=== PATIENT | male | born 1970 | race Caucasian/White ===

== ENCOUNTER 2018-06-21 14:11 | Inpatient (IN) | payer OTHER ==
[2018-06-21 15:57] VITALS: BMI 31.4
--- NOTE | 2018-06-21 19:31 | HP ---
"CIWA Score Nausea/Vomitin-No Nausea/No Vomiting Muscle Tremors: 4-Moderate,w/Arms Extend Anxiety: 2 Agitation: 3 Paroxysmal Sweats: 3 (Increased facial moisture) Orientation: 0-Oriented Tacttile Disturbances: 0-None Auditory Disturbances: 0-None Visual Disturbances: 0-None Headache: 3-Moderate CIWA-Ar Total Score: 15 - Admission Criteria [facility]ASAS Guidelines: Admission for Medically Managed Detox: Requires at least one of the followin. CIWA greater than 12 2. Seizures within the past 24 hours 3. Delirium tremens within the past 24 hours 4. Hallucinations within the past 24 hours 5. Acute intervention needed for co occurring medical disorder 6. Acute intervention needed for co occurring psychiatric disorder 7. Severe withdrawal that cannot be handled at a lower level of care (continued vomiting, continued diarrhea, abnormal vital signs) requiring intravenous medication and/or fluids 8. Patient presents the following: CIWA greater than 12 Admission Criteria Met: Admission criteria met Admission ROS S - [facility] Chief Complaint: Here for alcohol withdrawal. Allergies/Adverse Reactions: Allergies Allergy/AdvReac Type Severity Reaction Status Date / Time No Known Allergies Allergy Verified 06/21/18 19:01 History of Present Illness: Patient w/ a history of alcohol and crack/cocaine use disorder. States here for detox. Alcohol use began at age 15. Crack/cocaine use began at age 22. Nicotine use began at age 15. Opiate use began at age 27 and last use 1 year ago. Was on Suboxone for a short time. Hx blackouts unrelated to drug use. One overdose years ago. Denies seizures. Longest length of sobriety 1-2 months. Hx: HTN on meds. Hx heart burn. Not currently under the care of a mental health provider. Hx: Depression - denies thoughts of harming self or others. Search Terms: Gualberto Heredia, 1970 Search Date: 06/21/2018 07:30:41 PM The Drug Utilization Report below displays all of the controlled substance prescriptions, if any, that your patient has filled in the last twelve months. The information displayed on this report is compiled from pharmacy submissions to the Department, and accurately reflects the information as submitted by the pharmacies. This report was requested by: Laurence Phillips | Reference #: [id number] Others' Prescriptions Patient Name: Gualberto Heredia Date: 1970 Address: [address] [place] [id number] Sex: Male Rx Written Rx Dispensed Drug Quantity Days Supply Prescriber Name 12/29/2017 12/29/2017 suboxone 8 mg-2 mg sl film 7 7 Pradeep Corona Patient Name: Gualberto Heredia Date: 1970 Address: [address] [place] [address] [place] [address] Sex: Male Rx Written Rx Dispensed Drug Quantity Days Supply Prescriber Name 07/17/2017 07/17/2017 suboxone 8 mg-2 mg sl film 7 7 Trevon Smith MD Exam Limitations: No Limitations - Ebola screening Have you traveled outside of the country in the last 21 days: No Have you had contact with anyone from an Ebola affected area: No Have you been sick,other than usual withdrawal symptoms: No Do you have a fever: No - Review of Systems Constitutional: Diaphoresis, Changes in sleep (Difficulty falling asleep (Used to take Trazodone)) EENT: reports: Blurred Vision, Nose Congestion, Dental Problems (When eats sweets. Chews and swallows okay.) Respiratory: reports: No Symptoms reported Cardiac: reports: No Symptoms Reported GI: reports: Diarrhea (very soft brownsih), Indigestion : reports: No Symptoms Reported Musculoskeletal: reports: No Symptoms Reported Integumentary: reports: No Symptoms Reported Neuro: reports: Headache Endocrine: reports: Increased Thirst Hematology: reports: No Symptoms Reported Psychiatric: reports: Judgement Intact, Orientated x3, Agitated, Anxious, Depressed (Denies thoughts of harming self or others.) Patient History - Patient Medical History Hx Asthma: No Hx Cardiac Disorders: No Hx Hypertension: Yes Hx Seizures: No Hx Diabetes: No Hx Gastrointestinal Disorders: No Hx Sexually Transmitted Disorders: No Hx Renal Disease (ESRD): No Hx Human Immunodeficiency Virus (HIV): No (No recent exam. ) Hx Depression: Yes - Patient Surgical History Past Surgical History: No - PPD History Previous Implant?: No Documented Results: Negative w/o proof Implanted On Prior [facility] Admission?: No PPD to be Administered?: Yes - Smoking Cessation Smoking history: Current every day smoker Have you smoked in the past 12 months: Yes Aproximately how many cigarettes per day: 5 Hx Chewing Tobacco Use: No Initiated information on smoking cessation: Yes 'Breaking Loose' booklet given: 06/21/18 - Substance & Tx. History Hx Alcohol Use: Yes Hx Substance Use: Yes Substance Use Type: Alcohol, Cocaine, Heroin Hx Substance Use Treatment: Yes (detox -years ago; past use Suboxone) - Substances Abused Alcohol Route: Oral Frequency: Daily Amount used: 03/05OZ BEERS Age of first use: 15 Date of Last Use: 06/21/18 Cocaine Route: Smoking Frequency: Daily Amount used: $300 Age of first use: 22 Date of Last Use: 06/18/18 Admission Physical Exam [facility] - Vital Signs Vital Signs: Vital Signs - 24 hr 06/21/18 15:55 Temperature 97.5 F L Pulse Rate 89 Respiratory 18 Rate Blood Pressure 129/84 - Physical General Appearance: Yes: Nourished, Appropriately Dressed, Mild Distress, Tremorous, Irritable, Sweating, Anxious HEENTM: Yes: EOMI, Hearing grossly Normal, Normocephalic, Normal Voice, KRISTIE, Pharynx Normal, Other (Perforated nasal septum) Respiratory: Yes: Lungs Clear, Normal Breath Sounds, No Respiratory Distress Neck: Yes: No masses,lesions,Nodules, Supple Breast: Yes: Breast Exam Deferred Cardiology: Yes: Regular Rhythm, Regular Rate, S1, S2 Abdominal: Yes: Non Tender, Soft, Increased Bowel Sounds, Protuberent ( Increased abdominal adiposity) Genitourinary: Yes: Within Normal Limits Back: Yes: Normal Inspection Musculoskeletal: Yes: full range of Motion, Gait Steady Extremities: Yes: Normal Capillary Refill, Normal Range of Motion, Tremors ( Tremors at rest which increased w/ arm elevatin) Neurological: Yes: vegetable i farmworker II-XII NML intact, Fully Oriented, Alert, Motor Strength 5/5, Normal Mood/Affect Integumentary: Yes: Normal Color, Dry, Warm Lymphatic: Yes: Within Normal Limits - Diagnostic (1) Alcohol dependence with uncomplicated withdrawal Current Visit: Yes Status: Acute (2) Nicotine dependence, uncomplicated Current Visit: Yes Status: Acute (3) Cocaine dependence, uncomplicated Current Visit: Yes Status: Acute (4) Essential (primary) hypertension Current Visit: Yes Status: Acute (5) Perforated nasal septum Current Visit: Yes Status: Acute Cleared for Admission [facility] - Detox or Rehab Detox Regimen/Protocol: Librium [facility] Breath Alcohol Content Breath Alcohol Content: 0 Urine Drug Screen - Results Drug Screen Negative: No Urine Drug Screen Results: SAMY-Cocaine"
[2018-06-21] MEDS ORDERED: MENTHOL/PHENOL 1 EACH UD MM PRN (20:05)
[2018-06-21] MEDS ORDERED: MAGNESIUM CITRATE 300 ML BOTTLE PO PRN (20:05)
[2018-06-21] MEDS ORDERED: NICOTINE POLACRILEX 2 MG GUM BC PRN (20:05)
[2018-06-21] MEDS ORDERED: LOPERAMIDE HCL 2 MG CAPSULE PO PRN (20:05)
[2018-06-21] MEDS ORDERED: chlordiazePOXIDE HCL 25 MG CAPSULE PO ONE (20:05)
[2018-06-21] MEDS ORDERED: MAG HYDROX/AL HYDROX/SIMETH 30 ML UNIT-DOSE CUP PO PRN (20:05)
[2018-06-21] MEDS ORDERED: ACETAMINOPHEN 325 MG TABLET (FP) PO PRN (20:05)
[2018-06-21] MEDS ORDERED: IBUPROFEN 400 MG TABLET (FP) PO PRN (20:05)
[2018-06-21] MEDS ORDERED: chlordiazePOXIDE HCL 25 MG CAPSULE PO PRN (20:05)
[2018-06-21] MEDS ORDERED: P-EPHED 60MG/TRIPROLIDI 2.5MG TABLET PO PRN (20:05)
[2018-06-21] MEDS ORDERED: MAGNESIUM HYDROX 2400MG/30ML ORAL SUSPENSION 30 ML CUP PO PRN (20:05)
[2018-06-21] MEDS: THIAMINE HCL 100 MG TABLET (FP) PO SCH (21:53)
[2018-06-21] MEDS ORDERED: MELATONIN 5 MG TABLETS PO PRN (22:00)
[2018-06-21] MEDS: chlordiazePOXIDE HCL 25 MG CAPSULE PO SCH (22:02)
[2018-06-22] MEDS: chlordiazePOXIDE HCL 25 MG CAPSULE PO SCH ×4 (05:13→22:54)
--- NOTE | 2018-06-22 09:53 | PN ---
S CIWA - CIWA Score Nausea/Vomitin-Mild Nausea/No Vomiting Muscle Tremors: 4-Moderate,w/Arms Extend Anxiety: 4-Mod. Anxious/Guarded Agitation: 4-Moderately Restless Paroxysmal Sweats: 3 Orientation: 0-Oriented Tacttile Disturbances: 0-None Auditory Disturbances: 0-None Visual Disturbances: 0-None Headache: 0-None Present CIWA-Ar Total Score: 16 [facility] Progress Note (SOAP) Subjective: sweats shakes nausea body aches Objective: 06/22/18 09:52 Vital Signs Temperature 97.9 F 06/22/18 09:11 Pulse Rate 108 H 06/22/18 09:11 Respiratory Rate 18 06/22/18 09:11 Blood Pressure 128/76 06/22/18 09:11 O2 Sat by Pulse Oximetry (%) labs pending aaox3 ambulating no acute distress Assessment: 06/22/18 09:52 withdrawal sx Plan: continue detox increase fluids labs pending
[2018-06-22] MEDS ORDERED: PRAZOSIN HCL 2 MG CAPSULE PO SCH (10:00)
[2018-06-22] MEDS: PRENATAL VITAMINS W/ FOLIC ACID TABLET (FP) PO SCH (10:31)
[2018-06-22] MEDS: NICOTINE 7 MG/24 HOURS TOPICAL PATCH TD SCH (10:32)
[2018-06-22 10:52] LABS: HEMATOCRIT 42.4 % (35.4-49); HEMOGLOBIN 14.5 GM/dL (11.7-16.9); MCH 30.6 pg (25.7-33.7); MCHC 34.1 g/dl (32.0-35.9); MEAN CELL VOLUME 89.7 fl (80-96); MEAN PLT VOLUME 8.2 fl (7.5-11.1); PLATELET COUNT 380 K/MM3 (134-434); RBC 4.73 M/mm3 (4.00-5.60); RDW 13.8 % (11.9-15.9); WHITE BLOOD COUNT 15.8 K/mm3 (4.0-10.0)
[2018-06-22 11:09] LABS: ALBUMIN 3.8 g/dl (3.4-5.0); ALK PHOS 91 U/L (45-117); ANION GAP 9 MMOL/L (8-16); BILIRUBIN,TOTAL 0.2 mg/dL (0.2-1); BLOOD UREA NITROGEN 12 mg/dL (7-18); CALCIUM 9.3 mg/dL (8.5-10.1); CHLORIDE 106 mmol/L (98-107); CO2 24 mmol/L (21-32); CREATININE 0.8 mg/dL (0.55-1.3); GLUCOSE,RANDOM 90 mg/dL (74-106); POTASSIUM 4.1 mmol/L (3.5-5.1); SGOT/AST 19 U/L (15-37); SGPT/ALT 24 U/L (13-61); SODIUM 139 mmol/L (136-145); TOT PROT 7.6 g/dl (6.4-8.2)
[2018-06-22] MEDS: PRAZOSIN HCL 1 MG CAPSULE PO SCH (11:10)
[2018-06-22 11:24] LABS: URINE APPEARANCE TURBID; URINE BILIRUBIN NEGATIVE (<2.0 mg/dL); URINE COLOR YELLOW; URINE GLUCOSE (UA) NEGATIVE (NEGATIVE); URINE KETONE NEGATIVE (NEGATIVE); URINE LEUK ESTERASE NEGATIVE (NEGATIVE); URINE NITRITE NEGATIVE (NEGATIVE); URINE PROTEIN NEGATIVE (NEGATIVE); URINE UROBILINOGEN NEGATIVE mg/dL (0.2-1.0)
--- NOTE | 2018-06-22 13:37 | CONSULT ---
[facility] Psychiatric Consult - Data Date of interview: 06/22/18 Admission source: [facility] Identifying data: First admission to [facility] for this 48 y/o male undergoing detoxification (cocaine,alcohol,opioid). Interviewed at [address] [place] [address]. Patient is single, a father of three, homeless, unemployed and supported on food stamps. Substance Abuse History: Discussed with patient in this interview. Details in current [facility] report as follows : Smoking history: Current every day smoker. Have you smoked in the past 12 months: Yes. Aproximately how many cigarettes per day: 5. Hx Chewing Tobacco Use: No. Initiated information on smoking cessation: Yes. 'Breaking Loose' booklet given: 06/21/18. - Substance & Tx. History. Hx Alcohol Use: Yes. Hx Substance Use: Yes. Substance Use Type: Alcohol, Cocaine, Heroin. Hx Substance Use Treatment: Yes (detox -years ago; past use Suboxone). - Substances Abused. Alcohol. Route: Oral. Frequency : Daily. Amount used: 10/12OZ BEERS. Age of first use: 15. Date of Last Use: 06/21/18. Cocaine. Route: Smoking. Frequency: Daily. Amount used: $300. Age of first use: 22. Date of Last Use: 06/18/18 Medical History: Hypertension. Psychiatric History: No reported history of psychiatric hospitalizations. Patient endorses the diagnosis of " depression and bipolar disorder ". Mr Heredia sees a psychiatrist for medication management, on a monthly basis, at the [facility] in the [place]. Medications consist of olanzapine 10 mg/day + prazosin 2 mg/day + fluoxetine 20 mg/day.Patient insists on resuming these medications during this detoxification process. " I take my medications every day. I don't want to miss my doses ". Denies history of suicide attempts. Physical/Sexual Abuse/Trauma History: Patient denies. Additional Comment: Urine Drug Screen Results: SAMY-Cocaine. Noted. Mental Status Exam - Mental Status Exam Alert and Oriented to: Time, Place, Person Cognitive Function: Good Patient Appearance: Well Groomed Mood: Apprehensive, Hopeful Affect: Appropriate, Normal Range Patient Behavior: Appropriate, Cooperative Speech Pattern: Clear, Appropriate Voice Loudness: Normal Thought Process: Intact, Goal Oriented Thought Disorder: Not Present Hallucinations: Denies Suicidal Ideation: Denies Homicidal Ideation: Denies Insight/Judgement: Fair Sleep: Well Appetite: Good Muscle strength/Tone: Normal Gait/Station: Normal Psychiatric Findings - Problem List ([place] 1, 2,3) (1) Alcohol dependence with uncomplicated withdrawal Current Visit: Yes Status: Acute (2) Cocaine dependence, uncomplicated Current Visit: Yes Status: Acute (3) Nicotine dependence, uncomplicated Current Visit: Yes Status: Acute (4) Substance induced mood disorder Current Visit: Yes Status: Chronic (5) History of major depression Current Visit: Yes Status: Chronic - Initial Treatment Plan Initial Treatment Plan: Psychoeducation. Sleep hygiene. Detoxification in progress. Resume : prozac 20 mg po daily + olanzapine 7.5 mg po hs. Side effects /benefits of both drugs are discussed with the patient. Made aware of risk of suicidal ideation, sexual dysfunction and metabolic syndrome (in particular). Consent (verbal) granted to MD. Motivational rounds throughout hospital course. Support. Groups. Strategies of relapse prevention : to be revisited with the patient in the course of treatment. Observation.
--- NOTE | 2018-06-22 15:51 | EKG ---
Test Reason : Blood Pressure : / mmHG Vent. Rate : 079 BPM Atrial Rate : 079 BPM P-R Int : 144 ms QRS Dur : 084 ms QT Int : 344 ms P-R-T Axes : 045 018 035 degrees QTc Int : 394 ms NORMAL SINUS RHYTHM NORMAL ECG NO PREVIOUS ECGS AVAILABLE Confirmed by Sergey Farley ([id number]) on 06/22/2018 3:51:43 PM Referred By: Confirmed By:Sergey Farley
[2018-06-22] MEDS ORDERED: OLANZapine 7.5 MG TABLET PO SCH (22:00)
[2018-06-22] MEDS: THIAMINE HCL 100 MG TABLET (FP) PO SCH (22:54)
[2018-06-23] MEDS: chlordiazePOXIDE HCL 25 MG CAPSULE PO SCH ×3 (05:22→19:29)
--- NOTE | 2018-06-23 10:24 | PN ---
S CIWA - CIWA Score Nausea/Vomitin-No Nausea/No Vomiting Muscle Tremors: 3 Anxiety: 3 Agitation: 3 Paroxysmal Sweats: 3 Orientation: 0-Oriented Tacttile Disturbances: 0-None Auditory Disturbances: 0-None Visual Disturbances: 0-None Headache: 0-None Present CIWA-Ar Total Score: 12 BHS Progress Note (SOAP) Subjective: sweats shakes interrupted sleep body aches Objective: 06/23/18 10:24 Vital Signs Temperature 98.4 F 06/23/18 09:20 Pulse Rate 120 H 06/23/18 09:20 Respiratory Rate 18 06/23/18 09:20 Blood Pressure 127/83 06/23/18 09:20 O2 Sat by Pulse Oximetry (%) Laboratory Tests 06/22/18 06/22/18 06/22/18 07:00 07:00 07:00 WBC 15.8 H RBC 4.73 Hgb 14.5 Hct 42.4 MCV 89.7 MCH 30.6 MCHC 34.1 RDW 13.8 Plt Count 380 MPV 8.2 Sodium 139 Potassium 4.1 Chloride 106 Carbon Dioxide 24 Anion Gap 9 BUN 12 Creatinine 0.8 Creat Clearance w eGFR > 60 Random Glucose 90 Calcium 9.3 Total Bilirubin 0.2 AST 19 ALT 24 Alkaline Phosphatase 91 Total Protein 7.6 Albumin 3.8 Urine Color Urine Appearance Urine pH Ur Specific [place] Urine Protein Urine Glucose (UA) Urine Ketones Urine Blood Urine Nitrite Urine Bilirubin Urine Urobilinogen Ur Leukocyte Esterase RPR Titer HIV 1&2 Antibody Screen Negative HIV P24 Antigen Negative 06/22/18 06/22/18 07:00 08:00 WBC RBC Hgb Hct MCV MCH MCHC RDW Plt Count MPV Sodium Potassium Chloride Carbon Dioxide Anion Gap BUN Creatinine Creat Clearance w eGFR Random Glucose Calcium Total Bilirubin AST ALT Alkaline Phosphatase Total Protein Albumin Urine Color Yellow Urine Appearance Turbid Urine pH 5.0 Ur Specific [place] 1.023 Urine Protein Negative Urine Glucose (UA) Negative Urine Ketones Negative Urine Blood Negative Urine Nitrite Negative Urine Bilirubin Negative Urine Urobilinogen Negative Ur Leukocyte Esterase Negative RPR Titer Nonreactive HIV 1&2 Antibody Screen HIV P24 Antigen aaox3 ambulating no acute distress Assessment: 06/23/18 10:24 withdrawal sx Plan: continue detox increase fluids
[2018-06-23] MEDS: NICOTINE 7 MG/24 HOURS TOPICAL PATCH TD SCH (10:28)
[2018-06-23] MEDS: FLUoxetine HCL 20 MG CAPSULE (FP) PO SCH (10:28)
[2018-06-23] MEDS: PRAZOSIN HCL 1 MG CAPSULE PO SCH (10:28)
[2018-06-23] MEDS: PRENATAL VITAMINS W/ FOLIC ACID TABLET (FP) PO SCH (10:28)
[2018-06-23] MEDS: OLANZapine 2.5 MG TABLET PO SCH (22:53)
[2018-06-23] MEDS: THIAMINE HCL 100 MG TABLET (FP) PO SCH (22:54)
[2018-06-23] MEDS: chlordiazePOXIDE 5 MG CAPSULE PO SCH (22:54)
[2018-06-24] MEDS: chlordiazePOXIDE 5 MG CAPSULE PO SCH ×3 (06:42→17:22)
[2018-06-24] MEDS: PRENATAL VITAMINS W/ FOLIC ACID TABLET (FP) PO SCH (10:31)
[2018-06-24] MEDS: NICOTINE 7 MG/24 HOURS TOPICAL PATCH TD SCH (10:31)
[2018-06-24] MEDS: FLUoxetine HCL 20 MG CAPSULE (FP) PO SCH (10:31)
[2018-06-24] MEDS: PRAZOSIN HCL 1 MG CAPSULE PO SCH (10:32)
--- NOTE | 2018-06-24 10:33 | PN ---
BHS Progress Note (SOAP) Subjective: low back pain sweats Objective: 06/24/18 10:32 Vital Signs Temperature 97.9 F 06/24/18 09:27 Pulse Rate 91 H 06/24/18 09:27 Respiratory Rate 18 06/24/18 09:27 Blood Pressure 135/72 06/24/18 09:27 O2 Sat by Pulse Oximetry (%) aaox3 ambulating no acute distress Assessment: 06/24/18 10:32 mild withdrawal sx Plan: continue detox lidocaine patch motrin 800mg tid prn d/c in am
[2018-06-24] MEDS: LIDOCAINE 5% TOPICAL PATCH TP SCH (10:34)
[2018-06-24] MEDS: IBUPROFEN 400 MG TABLET (FP) PO PRN ×2 (10:40→21:10)
[2018-06-24] MEDS ORDERED: LIDOCAINE PATCH REMOVAL MC SCH (22:00)
[2018-06-24] MEDS: THIAMINE HCL 100 MG TABLET (FP) PO SCH (22:12)
[2018-06-24] MEDS: OLANZapine 2.5 MG TABLET PO SCH (22:12)
[2018-06-24] MEDS: chlordiazePOXIDE HCL 10 MG CAPSULE PO SCH (22:13)
[2018-06-25] MEDS: chlordiazePOXIDE HCL 10 MG CAPSULE PO SCH ×2 (05:53→10:12)
[2018-06-25] MEDS: IBUPROFEN 400 MG TABLET (FP) PO PRN (06:11)
[2018-06-25 06:16] VITALS: TEMP 97.2
--- NOTE | 2018-06-25 09:21 | DS ---
[facility] Detox Discharge Summary Admission Date: 06/21/18 Discharge Date: 06/25/18 - History Present History: Alcohol Dependence, Cocaine Dependence - Physical Exam Results Vital Signs: Vital Signs Temperature 97.2 F L 06/25/18 06:16 Pulse Rate 87 06/25/18 06:16 Respiratory Rate 18 06/25/18 06:16 Blood Pressure 117/96 06/25/18 06:16 O2 Sat by Pulse Oximetry (%) - Treatment Hospital Course: Detox Protocol Followed, Detoxed Safely, Responded well, Discharged Condition Good, Rehab Referral Accepted - Medication Discharge Medications: Ambulatory Orders Fluoxetine HCl 20 mg PO DAILY 06/21/18 Olanzapine 10 mg PO DAILY 06/21/18 Prazosin HCl [Minipress] 2 mg PO DAILY 06/21/18 - Diagnosis (1) Alcohol dependence with uncomplicated withdrawal Current Visit: Yes Status: Chronic (2) Cocaine dependence, uncomplicated Current Visit: Yes Status: Chronic (3) Essential (primary) hypertension Current Visit: Yes Status: Acute (4) Nicotine dependence, uncomplicated Current Visit: Yes Status: Chronic Qualifiers: Nicotine product type: cigarettes Qualified Code(s): F17.210 - Nicotine dependence, cigarettes, uncomplicated (5) Perforated nasal septum Current Visit: Yes Status: Acute (6) History of major depression Current Visit: Yes Status: Chronic (7) Substance induced mood disorder Current Visit: Yes Status: Chronic - AMA Did Patient Leave Against Medical Advice: No (referred to [facility])
[2018-06-25 09:56] VITALS: BP 136/87; PULSE 20
[2018-06-25] MEDS: PRENATAL VITAMINS W/ FOLIC ACID TABLET (FP) PO SCH (10:12)
[2018-06-25] MEDS: FLUoxetine HCL 20 MG CAPSULE (FP) PO SCH (10:12)
[2018-06-25] MEDS: NICOTINE 7 MG/24 HOURS TOPICAL PATCH TD SCH (10:12)
[2018-06-25] MEDS: LIDOCAINE 5% TOPICAL PATCH TP SCH (10:13)
[2018-06-25] MEDS: PRAZOSIN HCL 1 MG CAPSULE PO SCH (10:13)
== END 2018-06-25 11:12 | disposition home or self-care (01) | DRG 774 ==
LOC: YASAS 14:11 → Y6N 20:57
PROVIDERS: ADMIT Neuromusculoskeletal Medicine & OMM; ATTEND Neuromusculoskeletal Medicine & OMM
PROC: HZ2ZZZZ Detoxification Services for Substance Abuse Treatment (ICD-10-PCS; principal; 2018-06-21)
DX: F10.230 Alcohol dependence with withdrawal, uncomplicated (principal); F14.20 Cocaine dependence, uncomplicated; F17.210 Nicotine dependence, cigarettes, uncomplicated; F19.24 Other psychoactive substance dependence with psychoactive substance-induced mood disorder; I10 Essential (primary) hypertension; J34.89 Other specified disorders of nose and nasal sinuses
CPT/HCPCS: 36415; 80053; 81003; 85027; 86593; 87389; 93005; 93010